=== PATIENT | male | born 1970 | race Caucasian/White ===

== ENCOUNTER 2016-07-22 09:21 | Emergency (ER) | payer SELFPAY ==
[2016-07-22] MEDS ORDERED: KEPPRA 1,000 MG/NS 0.75% 100ML 1,000 MG/100 ML BAG IV ONE (09:54)
--- NOTE | 2016-07-22 09:56 | Emergency Department Report ---
HPI - General Chief Complaint: Seizure Time Seen by Provider: 07/22/16 09:34 - HPI HPI: This is a 45-year-old male who presents to the emergency department by EMS from home with complaint of a seizure that was witnessed by his son. The seizure occurred about 1 hour ago and lasted for about 2-3 minutes and there was some level of a postictal period. Patient currently says he has a headache but otherwise denies any vision change, slurred speech or any other neurological deficits. With this the patient has been having intermittent midsternal chest pain. He feels like the seizures over the past 2 days have "started by chest." He has a history of hypertension and acid reflux but does not currently take any medications for it. The patient had a seizure yesterday and went to [facility] where he allegedly had a CT scan of the head that was negative, a full evaluation in the emergency department and was discharged home without any medications. Prior to yesterday, the patient has no previous history of seizures. He has a physician, Dr. Rossi, but has not seen them regarding his symptoms. ED Past Medical Hx - Past Medical History Previous Medical History?: Yes Hx Hypertension: Yes Hx GERD: Yes Hx Psychiatric Treatment: Yes (depression) - Surgical History Past Surgical History?: Yes Additional Surgical History: pelvis and femur - Social History Smoking Status: Current Every Day Smoker Substance Use Type: None - Medications Home Medications: Home Medications Medication Instructions Recorded Confirmed Last Taken Type Cyclobenzaprine [Flexeril 10mg] 10 mg PO BID PRN #10 tablet 02/07/14 02/10/14 11:00 Rx Ibuprofen [Motrin 600 MG tab] 600 mg PO Q8H PRN #30 tablet 02/07/14 02/10/14 11:00 Rx Prednisone [Prednisone 10 mg 10 mg PO .TAPER #1 tab.ds.pk 02/07/14 02/10/14 08:00 Rx (6-Day Pack, 21 Tabs)] traMADol [Ultram 50 MG tab] 50 mg PO Q6HR PRN #20 tablet 02/07/14 02/10/1402/10 11:00 Rx oxyCODONE /ACETAMINOPHEN [Percocet 1 tab PO Q6HR PRN #14 tablet 02/10/14 Unknown Rx 5/325] levETIRAcetam [Keppra TAB] 500 mg PO BID #60 tablet 07/22/16 Unknown Rx ED Review of Systems ROS: Stated complaint: SEIZURE Other details as noted in HPI Comment: All other systems reviewed and negative Constitutional: denies: chills, fever Eyes: denies: eye pain, eye discharge, vision change ENT: denies: ear pain, throat pain Respiratory: denies: cough, shortness of breath, wheezing Cardiovascular: denies: palpitations, edema Gastrointestinal: denies: abdominal pain, nausea, diarrhea Genitourinary: denies: urgency, dysuria Musculoskeletal: denies: back pain, joint swelling, arthralgia Skin: denies: rash, lesions Neurological: headache, other (seizure) Physical Exam - Physical Exam Vital Signs: Vital Signs 07/22/16 09:43 Temperature 98.2 F Pulse Rate 70 Respiratory 16 Rate Blood Pressure 106/72 [Left] O2 Sat by Pulse 96 Oximetry Physical Exam: GENERAL: The patient is well-developed well-nourished. HEENT: Normocephalic. Atraumatic. Extraocular motions are intact. Patient has moist mucous membranes. Pupils equal reactive to light bilaterally. No nystagmus. Normal appearing external ear canals and tympanic membranes. Oropharynx is clear. NECK: Supple. Trachea is midline. CHEST/LUNGS: Clear to auscultation. There is no respiratory distress noted. HEART/CARDIOVASCULAR: Regular. There is no tachycardia. There is no gallop rub or murmur. ABDOMEN: Abdomen is soft, nontender. Patient has normal bowel sounds. There is no abdominal distention. SKIN: Skin is warm and dry. NEURO: The patient is awake, alert, and oriented. The patient is cooperative. The patient has no focal neurologic deficits. The patient has normal speech. Cranial nerves II through XII grossly intact. MUSCULOSKELETAL: There is no tenderness or deformity. There is no limitation range of motion. There is no evidence of acute injury. ED Course Vital Signs 07/22/16 09:43 Temperature 98.2 F Pulse Rate 70 Respiratory 16 Rate Blood Pressure 106/72 [Left] O2 Sat by Pulse 96 Oximetry ED Medical Decision Making - Lab Data Result diagrams: 07/22/16 09:52 07/22/16 09:52 - EKG Data -: EKG Interpreted by Me EKG shows normal: sinus rhythm, axis, intervals, QRS complexes, ST-T waves Rate: normal - EKG Data When compared to previous EKG there are: previous EKG unavailable Interpretation: normal EKG - Medical Decision Making 45-year-old male presents the emergency department with a second seizure in 2 days as well as complaint of some intermittent chest pains that are becoming more persistent. I was able to obtain the CT of the head without contrast from [facility] yesterday and therefore I did not repeat the CT imaging of the head at this time. His labs were also unremarkable do not show any etiology of symptoms. He has had one negative troponin, a d-dimer that was at the high-end of normal. There is no significant leukocytosis, no renal to light abnormalities, renal insufficiency or glucose abnormalities. EKG did not show any signs of ST elevation KS, ischemia or dysrhythmia. Patient was monitored for a while and does not have any further seizure-like activity at this time. However he was given a loading dose of IV Keppra. Since the patient has had 2 seizures in 2 days in a row, as well as the persistent and worsening chest discomfort, I will seek admission for this patient for further evaluation and treatment. - Differential Diagnosis epilepsy, substance abuse, KS, costochondritis, GERD Critical Care Time: No Critical care attestation.: If time is entered above; I have spent that time in minutes in the direct care of this critically ill patient, excluding procedure time. ED Disposition Clinical Impression: Seizure Chest pain Qualifiers: Chest pain type: unspecified Qualified Code(s): R07.9 - Chest pain, unspecified Disposition: -09 OP ADMIT IP TO THIS HOSP Is pt being admited?: Yes Condition: Stable Instructions: Chest Pain (ED) Prescriptions: levETIRAcetam [Keppra TAB] 500 mg PO BID #60 tablet Referrals: PRIMARY CARE, [Primary Care Provider] - 3-5 Days Time of Disposition: 14:52
[2016-07-22 10:09] LABS: Hematocrit 45.4 % (35.5-45.6); Hemoglobin 15.2 gm/dl (11.8-15.2); Mean Corpuscular HGB Conc 33 % (32-34); Mean Corpuscular Hemoglobin 30 pg (28-32); Mean Corpuscular Volume 89 fl (84-94); Platelet Count 257 K/mm3 (140-440); Red Cell Distribution Width 12.5 % (13.2-15.2); White Blood Count 6.2 K/mm3 (4.5-11.0)
[2016-07-22 10:21] LABS: Anion Gap 17 mmol/L; BUN/Creatinine Ratio 18.88; Blood Urea Nitrogen 17 mg/dL (9-20); Calcium 9.1 mg/dL (8.4-10.2); Carbon Dioxide 24 mmol/L (22-30); Chloride 100.8 mmol/L (98-107); Glucose 106 mg/dL (75-100); Potassium 4.2 mmol/L (3.6-5.0); Sodium 138 mmol/L (137-145)
[2016-07-22 10:45] LABS: Albumin 3.8 g/dL (3.9-5); Albumin/Globulin Ratio 1.1 %; Bilirubin,Direct 0.2 mg/dL (0-0.2); Bilirubin,Indirect 0.9 mg/dL; Bilirubin,Total 1.1 mg/dL (0.1-1.2); Total Protein 7.2 g/dL (6.3-8.2)
[2016-07-22 12:43] LABS: Urine Drugs of Abuse Note Disclamer
[2016-07-22 12:48] LABS: Bilirubin,Urine NEG (Negative); Blood,Urine NEG (Negative); Ketones,Urine NEG (Negative); Leukocyte Esterase,Urine TR (Negative); Mucus,Urine FEW /HPF; Nitrite,Urine NEG (Negative); Protein,Urine <15 mg/dL mg/dL (Negative); Urobilinogen,Urine < 2.0 mg/dL (<2.0); WBC,Urine < 1.0 /HPF (0.0-6.0)
--- NOTE | 2016-07-22 12:52 | Admit Criteria Form ---
Admission Criteria Documentation: SEIZURE Clinical Indications for Admission to Inpatient Care (Place 'X' for any and all applicable criteria): Admission is indicated for seizure and ANY ONE of the following(1)(2)(3)(4)(5): [X ]I. Inpatient admission required rather than observation care (Also use Seizure: Observation Care Criteria as appropriate) because of ANY ONE of the following: [ ]a) Altered mental status that is severe or persistent [ ]b) New focal neurologic deficit that is severe or persistent [ ]c) Metabolic disorder (eg, hypoglycemia, hyponatremia) that is severe or persistent [X]d) Recurrent seizure [ ]e) Outpatient antiseizure regimen cannot be established (eg , patient cannot tolerate medication, initiation requires inpatient care) [ ]f) Need for ongoing intravenous infusion of antiseizure medication [ ]g) Cardiac arrhythmias of immediate concern [ ]h) Cerebral bleeding, hydrocephalus, or vasospasm monitoring (14) [ ]i) Increased intracranial pressure or cerebral edema monitoring (15) [ ]j) Other treatment or monitoring requiring inpatient admission [ ]II. Status epilepticus [A] or repetitive seizures not controlled with emergent treatment (6)(8) [ ]III. Brain disorder (eg, tumor, edema, and hydrocephalus) that requiring monitoring or intervention available only at inpatient level of care. [ ]IV. Brain insult (eg, severe trauma, stroke, drug toxicity, or withdrawal) that requires monitoring or intervention available only at inpatient level of care (10)(11) Extended stay beyond goal length of stay may be needed for (22) [ ]a) Complications of status epilepticus [ ]b) Refractory status epilepticus [ ]c) Etiology-specific therapy for conditions such as PHOTOENGRAVING MACHINE OPERATOR/TENDER infection, head injury,eclampsia, severe metabolic abnormalities, and brain tumor [ ]d) Residual neurologic damage, [ ]e) Initiation of significant change to anticonvulsant treatment [ ]f) Older patients (65 years or older) [ ]g) Patient requiring intubation (eg, to protect airway) The original [facility] content created by [employer] has been revised. The portions of the content which have been revised are identified through the use of italic text or in bold, and [facility] [employer] has neither reviewed nor approved the modified material. All other unmodified content is copyright [facility] [employer]. Please see references footnoted in the original [facility] edition 2016
--- NOTE | 2016-07-22 13:27 | XRay Report ---
PORTABLE CHEST INDICATION: Chest pain. COMPARISON: None similar. FINDINGS: Portable, frontal chest radiograph demonstrates normal cardiomediastinal silhouette. Slight left lower lung horizontal atelectasis or scarring as also some possibly along the right hemidiaphragm laterally. No pleural effusions or CHF. EKG leads. Intact bones. CONCLUSION: No significant acute chest process, as described. Thank you for the opportunity to participate in this patient's care.
[2016-07-22] MEDS ORDERED: NACL ONE (14:16)
--- NOTE | 2016-07-22 14:40 | Cat Scan Report ---
CTA chest: History: Elevated d-dimer. Findings: No evidence of lytic or nasal pulmonary embolism. Mediastinal lymph nodes appear enlarged. No pleural pericardial effusion. Bilateral pleural thickening. Bibasilar scarring. Mild emphysematous changes. No discrete nodularity or consolidation. Impression: No evidence of pulmonary embolism. Mediastinal lymph nodes measuring up to 1.98 cm. Bilateral pleural thickening with bibasilar scarring and mild emphysematous changes.
[2016-07-22 17:13] VITALS: BP 104/62
[2016-07-22] MEDS ORDERED: KEPPRA PO SCH (22:00)
--- NOTE | 2016-07-23 08:21 | Consultation ---
History of Present Illness - Reason for Consult Consult date: 07/22/16 Requesting physician: LUCAS MORAN - History of Present Illness 45 YO Male with HTN, GERD, Depression, Nicotine Dependence, Seizure disorder( not taking medication) presents to ED for evaluation. Pt experienced a seizure as witnessed by his son. The seizure occurred about 1 hour ago and lasted for about 2-3 minutes with a brief postictal period. Patient currently says he has a headache but otherwise denies any vision change, slurred speech or any other neurological deficits. The patient had a seizure yesterday and went to [facility] where he allegedly had a CT scan of the head that was negative, a full evaluation in the emergency department and was discharged home without any medications. Pt denies fever, chills, CP, Palpitations, NVD, syncope, vertigo, trauma, or recent ill contacts. Past History Past Medical History: GERD, hypertension Past Surgical History: Other (pelvis, femur) Social history: single Family history: other (seizure disorder) Medications and Allergies Allergies Allergy/AdvReac Type Severity Reaction Status Date / Time No Known Allergies Allergy Verified 02/10/14 13:49 Home Medications Medication Instructions Recorded Confirmed Last Taken Type Amoxicillin [Trimox CAP] 1,000 mg PO Q12H 07/22/16 07/22/16 Unknown History Pantoprazole [Protonix TAB] 40 mg PO QDAY 07/22/16 07/22/16 Unknown History Sertraline HCl [Zoloft] 50 mg PO QDAY 07/22/16 07/22/16 Unknown History Sucralfate [Carafate] 1 gm PO Q24H 07/22/16 07/22/16 Unknown History levETIRAcetam [Keppra TAB] 500 mg PO BID #60 tablet 07/22/16 Unknown Rx metroNIDAZOLE [Flagyl TAB] 500 mg PO Q12H 07/22/16 07/22/16 Unknown History Review of Systems All systems: negative Constitutional: other (seizure) Exam - Constitutional Vitals: Temp Pulse Resp BP Pulse Ox 98.6 F 72 16 104/62 100 07/22/16 15:46 07/22/16 17:11 07/22/16 17:11 07/22/16 17:11 07/22/16 17:11 General appearance: Present: no acute distress, well-nourished - EENT Eyes: Present: PERRL ENT: hearing intact, clear oral mucosa - Neck Neck: Present: supple, normal ROM - Respiratory Respiratory effort: normal Respiratory: bilateral: CTA - Cardiovascular Heart Sounds: Present: S1 & S2. Absent: rub, click - Extremities Extremities: pulses symmetrical, No edema Peripheral Pulses: within normal limits - Abdominal General gastrointestinal: Present: soft, non-tender, non-distended, normal bowel sounds Male genitourinary: Present: normal - Integumentary Integumentary: Present: clear, warm, dry - Musculoskeletal Musculoskeletal: gait normal, strength equal bilaterally - Psychiatric Psychiatric: appropriate mood/affect, intact judgment & insight - Neurologic Neurologic: CNII-XII intact, moves all extremities Results - Labs CBC & Chem 7: 07/22/16 09:52 07/22/16 09:52 Labs: Abnormal lab results 07/22/16 07/22/16 07/22/16 Range/Units 09:52 09:52 10:10 RBC 5.10 H (3.65-5.03) M/mm3 RDW 12.5 L (13.2-15.2) % [place] % (Auto) 8.7 H (0.0-7.3) % D-Dimer (0-234) ng/mlDDU Glucose 106 H (75-100) mg/dL AST 41 H (5-40) units/L ALT 57 H (7-56) units/L Total Creatine Kinase 28 L (55-170) units/L Albumin 3.8 L (3.9-5) g/dL 07/22/16 Range/Units 12:18 RBC (3.65-5.03) M/mm3 RDW (13.2-15.2) % [place] % (Auto) (0.0-7.3) % D-Dimer 237.91 H (0-234) ng/mlDDU Glucose (75-100) mg/dL AST (5-40) units/L ALT (7-56) units/L Total Creatine Kinase (55-170) units/L Albumin (3.9-5) g/dL Assessment and Plan - Patient Problems (1) Seizure Status: Acute Plan to address problem: Keppra loading in Ed, discharged home with indira, Pt instructed to f/u pcp 1wk , neurology prn for f/u care. (2) Elevated d-dimer Status: Acute Plan to address problem: CTA chest: Negative for pe.
== END 2016-07-22 17:13 | disposition admitted as inpatient to this hospital (09) ==
LOC: ED 09:21
DX: R56.9 Unspecified convulsions (principal); R07.9 Chest pain, unspecified; R51 Headache; I10 Essential (primary) hypertension; K21.9 Gastro-esophageal reflux disease without esophagitis; F17.200 Nicotine dependence, unspecified, uncomplicated
CPT/HCPCS: 36415; 71010; 71275; 80048; 80074; 80307; 81001; 82550; 82962; 84443; 84484; 85025; 85379; 93005; 93010; 96374; 99285; J1953; Q9967